=== PATIENT | female | born 1990 | race African-American/Black ===

== ENCOUNTER 2016-09-25 09:23 | Observation (INO) | payer MEDICAID ==
[2016-09-25 10:30] LABS: APPEARANCE,URINE SLIGHTLY-CLOUDY; BILIRUBIN,URINE NEGATIVE (NEGATIVE); GLUCOSE, URINE NEGATIVE (NEGATIVE); KETONES,URINE TRACE mg/dL (NEGATIVE); LEUKOCYTE ESTERASE,URINE TRACE (NEGATIVE); NITRITE,URINE NEGATIVE (NEGATIVE); PROTEIN,URINE 100 mg/dL (NEGATIVE); URINE SPECIFIC GRAVITY 1.029
[2016-09-25] MEDS ORDERED: KETOROLAC TROMETHAMINE INJ/PF 30 MG/1 ML SDV IV ONE (10:35)
[2016-09-25 12:21] LABS: ABSOLUTE BASOPHILS # (AUTO) 0.1 10^3/uL (0.0-0.2); ABSOLUTE LYMPHOCYTES (AUTO) 1.5 10^3/uL (0.5-4.7); ABSOLUTE MONOCYTES (AUTO) 1.1 10^3/uL (0.1-1.4); ABSOLUTE NEUT (AUTO) 10.4 10^3/uL (1.7-8.2); BASOPHILS % (AUTO) 0.4 % (0-2); EOSINOPHILS % (AUTO) 0.2 % (0-6); HEMATOCRIT 30.3 % (36.0-47.0); HEMOGLOBIN 9.8 g/dL (12.0-15.5); HGB HCT DIFFERENCE -0.9; LYMPHOCYTES % (AUTO) 11.6 % (13-45); MEAN CORPUSCULAR HEMOGLOBIN 22.7 pg (27.0-33.4); MEAN CORPUSCULAR HGB CONC 32.3 g/dL (32.0-36.0); MEAN CORPUSCULAR VOLUME 70 fl (80-97); MONOCYTES % (AUTO) 8.6 % (3-13); RED CELL DISTRIBUTION WIDTH 14.2 % (11.5-14.0); SEGMENTED NEUTROPHILS % (AUTO) 79.2 % (42-78); WHITE BLOOD COUNT 13.2 10^3/uL (4.0-10.5)
--- NOTE | 2016-09-25 12:32 | ER Document Report ---
ED GI/ - General Chief Complaint: Pelvic Pain Stated Complaint: ABDOMINAL PAIN Notes: Patient is here complaining of pain in her left lower quadrant for the past 2 days, since Friday. The pain hurts around into the mid suprapubic region and also backward into the flank regions. It's worsened by her standing up straight so she is bending over walking. She went to a local urgent care yesterday who did a pelvic examination and some labs. Told the patient she is not , but needed to be seen where they have ultrasound capabilities. So she is here today. Denies any nausea or vomiting or diarrhea. Denies any UTI symptoms and has never had a UTI. Denies cough or cold or chest congestion. Think she may have had some fever yesterday. LMP 09/21, on no control. TRAVEL OUTSIDE OF THE [place] IN LAST 30 DAYS: No - Related Data Allergies/Adverse Reactions: No Known Allergies Allergy (Verified 09/25/16 09:30) Home Medications: Current Home Medications No Home Medications 09/25/16 [History] Past Medical History - Social History Smoking Status: Never Smoker Cigarette use (# per day): No Chew tobacco use (# tins/day): No Frequency of alcohol use: Occasional Drug Abuse: None Family History: None, Reviewed & Not Pertinent Patient has suicidal ideation: No Patient has homicidal ideation: No Renal/ Medical History: Reports: Hx Ovarian Cysts - Thinks she may have been told that she had ovarian cysts about 10 years ago Malignancy Medical History: Denies: Hx Cervical Cancer Past Surgical History: Reports: Hx Herniorrhaphy Review of Systems - Review of Systems Notes: REVIEW OF SYSTEMS: CONSTITUTIONAL : Denies fever. EENT: Denies eye, ear, nose or mouth or throat pain or other symptoms. CARDIOVASCULAR: Denies chest pain. RESPIRATORY: Denies cough, chest congestion, or shortness of breath. GASTROINTESTINAL: Denies nausea, vomiting, or diarrhea. See history of present illness. GENITOURINARY: Denies difficulty or painful urinating, urinary frequency, blood in urine. LMP 09/21, regular, no control. MUSCULOSKELETAL: Denies back or neck pain. Denies joint pain or swelling. SKIN: Denies rash or skin lesions. NEUROLOGICAL: Denies LOC or altered mental status. Denies headache. Denies sensory loss or motor deficits. ALL OTHER SYSTEMS REVIEWED AND NEGATIVE. Physical Exam - Vital signs Vitals: Temp Pulse Resp BP Pulse Ox 98.5 F 94 16 97/58 L 100 09/25/16 09:28 09/25/16 09:28 09/25/16 09:28 09/25/16 09:28 09/25/16 09:28 Interpretation: Normal - Blood pressure slightly low. - Notes Notes: PHYSICAL EXAMINATION: GENERAL: Well-appearing, in no acute distress. Walks slightly slumped forward as if in pain to stand up straight. HEAD: Atraumatic, normocephalic. NECK: Normal range of motion, supple. LUNGS: Breath sounds clear and equal bilaterally. HEART: Regular rate and rhythm without murmurs. ABDOMEN: Patient's left lower quadrant is extremely tender to touch with guarding present. Fullness in that region felt, but no actual mass noted. Bowel sounds are present. BACK: No tenderness throughout entire back. No CVA percussion tenderness of either side. EXTREMITIES: Normal range of motion without pain. NEUROLOGICAL: Normal speech, normal gait. Normal sensory, motor, and reflex exams. Awake, alert, and oriented x3. Cranial nerves normal. SKIN: Warm, dry, no rashes. - Genitourinary External exam: Normal Speculum exam: Normal, Cervix closed. No: Vaginal discharge, Lesions Vaginal bleeding: None Bimanuel exam: Uterus enlarged, Other - Pelvic exam reveals diffuse severe tenderness with very large uterus or mass of the midline of the suprapubic region. Course - Re-evaluation Re-evalutation: 09/25/16 16:[address] Deutsch, reproduction order processor NET SOFTWARE DEVELOPER and ask his assistance in evaluating the patient. 09/25/16 19:18 Dr. Deutsch evaluated the patient and felt she should be transferred to a tertiary center for further evaluation and care. A call was placed to the transfer center at [facility] in [place] and a Dr. Gu accepted the patient in transfer, but there are no beds available at this time. It is not known at this time if the patient will be able to get a bed at [facility] this evening or tonight. Dr. Deutsch agreed to put the patient in for observation until a bed becomes available in [place]. - Vital Signs Vital signs: Temp Pulse Resp BP Pulse Ox 98.2 F 78 16 100/61 99 09/25/16 17:22 09/25/16 17:22 09/25/16 17:22 09/25/16 17:22 09/25/16 17:22 - Laboratory Result Diagrams: 09/25/16 10:46 09/25/16 10:46 Laboratory results interpreted by me: 09/25/16 09/25/16 09/25/16 10:10 10:46 10:46 WBC 13.2 H Hgb 9.8 L Hct 30.3 L MCV 70 L MCH 22.7 L RDW 14.2 H Seg Neutrophils % 79.2 H Lymphocytes % 11.6 L Absolute Neutrophils 10.4 H Albumin 3.4 L Lipase 22.3 L Urine Protein 100 H Urine Ketones TRACE H Urine Blood SMALL H Urine Urobilinogen 4.0 H Ur Leukocyte Esterase TRACE H - Diagnostic Test Radiology reviewed: Image reviewed, Reports reviewed - Ultrasound shows a very large mass of uncertain origin in the pelvis, recommend CT scan. CT scan of the abdomen shows a very large mass in the pelvis which could be either cystic in nature or solid and uncertain origin of the mass. Discharge - Discharge Clinical Impression: Pelvic mass Condition: Stable Disposition: ADMITTED OBSERVATION Admitting Provider: [facility] Admitted: Post
[2016-09-25 12:37] LABS: CHLAM PCR NOT DETECTED (NOT DETECT)
[2016-09-25 12:47] LABS: ALANINE AMINOTRANSFERASE 22 U/L (9-52); ALBUMIN 3.4 g/dL (3.5-5.0); ALKALINE PHOSPHATASE 51 U/L (38-126); ANION GAP 9 (5-19); ASPARTATE AMINO TRANSFERASE 22 U/L (14-36); BILIRUBIN,TOTAL 1.3 mg/dL (0.2-1.3); BLOOD UREA NITROGEN 10 mg/dL (7-20); CARBON DIOXIDE 25 mmol/L (22-30); CHLORIDE 106 mmol/L (98-107); CREATININE RESULT 0.74 mg/dL (0.52-1.25); GLUCOSE 88 mg/dL (75-110); LIPASE 22.3 U/L (23-300); POTASSIUM 4.3 mmol/L (3.6-5.0); SODIUM 139.5 mmol/L (137-145); TOTAL PROTEIN 6.3 g/dL (6.3-8.2)
[2016-09-25] MEDS ORDERED: ONDANSETRON HCL INJ/PF 4 MG/2 ML SDV IV ONE (13:43)
[2016-09-25] MEDS ORDERED: HYDROMORPHONE HCL INJ/PF 2 MG/ML AMPULE IV ONE ×2 (13:44→18:50)
--- NOTE | 2016-09-25 18:01 | PDOC CONSULTATION ---
Consultation Consult Date: 09/25/16 Attending physician:: JOVANY PUENTE Consult reason:: Pelvic mass History of Present Illness Admission Date/PCP: RED RESENDIZ MD History of Present Illness: TIFFANI RESENDIZ is a 26 year old female. She presents with pain left lower quadrant since last 2 days. She was seen a local urgent care yesterday and a pelvic exam and labs were done. She was told that she was not . She presents to the ER today with the same symptoms. She underwent a CT scan showing a large pelvic mass which is anterior to the uterus with its mostly solid component. She was also some fluid in the pelvic gutters. Past Medical History LMP: 09/22/16 Malignancy Medical History: Denies: Cervical Cancer Social History Smoking Status: Never Smoker Family History Family History: None, Reviewed & Not Pertinent Parental Family History Reviewed: Yes Children Family History Reviewed: Yes Sibling(s) Family History Reviewed.: Yes Medication/Allergy Home Medications: Ibuprofen [Motrin 600 Mg Tablet] 600 mg PO TID #30 tablet 03/05/14 Allergies/Adverse Reactions: No Known Allergies Allergy (Verified 09/25/16 09:30) Physical Exam - Physical Exam Vital Signs: Temp Pulse Resp BP Pulse Ox 98.2 F 78 16 100/61 99 09/25/16 17:22 09/25/16 17:22 09/25/16 17:22 09/25/16 17:22 09/25/16 17:22 Intake & Output 09/24/16 09/25/16 09/26/16 06:59 06:59 06:59 Weight 64.9 kg Result Laboratory Results: 09/25/16 10:46 09/25/16 10:46 09/25/16 09/25/16 09/25/16 10:10 10:46 10:46 WBC 13.2 H RBC 4.30 Hgb 9.8 L Hct 30.3 L MCV 70 L MCH 22.7 L MCHC 32.3 RDW 14.2 H Plt Count 324 Seg Neutrophils % 79.2 H Lymphocytes % 11.6 L Monocytes % 8.6 Eosinophils % 0.2 Basophils % 0.4 Absolute Neutrophils 10.4 H Absolute Lymphocytes 1.5 Absolute Monocytes 1.1 Absolute Eosinophils 0.0 Absolute Basophils 0.1 Sodium 139.5 Potassium 4.3 Chloride 106 Carbon Dioxide 25 Anion Gap 9 BUN 10 Creatinine 0.74 Est GFR ( Amer) > 60 Est GFR (Non-Af Amer) > 60 Glucose 88 Calcium 9.0 Total Bilirubin 1.3 AST 22 ALT 22 Alkaline Phosphatase 51 Total Protein 6.3 Albumin 3.4 L Lipase 22.3 L Urine Color ASHVIN Urine Appearance SLIGHTLY-CLOUDY Urine pH 6.0 Ur Specific [place] 1.029 Urine Protein 100 H Urine Glucose (UA) NEGATIVE Urine Ketones TRACE H Urine Blood SMALL H Urine Nitrite NEGATIVE Ur Leukocyte Esterase TRACE H Urine WBC (Auto) 5 Urine RBC (Auto) 26 Impressions: Abdomen/Pelvis CT 09/25/16 00:00 IMPRESSION: There is a large masslike lesion seen in the anterior abdomen anterior to the uterus in on top of the bladder which appears to be either a complex cystic lesion or solid lesion of unknown origin foot likely appears to arise from the adnexa. Masses that demonstrate significant enhancement on these images. This appears to be some intra-abdominal free fluid in Sosa's pouch and in the pericolic gutters likely related to this mass lesion. Pelvis Ultrasound 09/25/16 11:05 IMPRESSION: Huge complex left adnexal mass worrisome for tumor. Left ovary not definitely visualized. Results discussed with the emergency room attending physician Assessment & Plan - Plan Summary Plan Summary: I've seen the patient examined with Dr. Puente. She has a large pelvic mass on both exam CAT scan and ultrasound. Because of this potential for malignancy she will need a laparotomy with staging in case the mass is malignant. We are working on transferring her to a tertiary care center for this procedure. We do not have by [employer] oncology's subspecialty at our institution. Patient does appear stable. We are waiting on a bed to open up at [facility].
[2016-09-25] MEDS ORDERED: OXYCODONE-ACETAMINOPHEN 5-325 MG TABLET PO PRN (19:17)
[2016-09-25] MEDS ORDERED: RINGERS SOLUTION,LACTATED 1,000 ML IV PRN (19:17)
[2016-09-25] MEDS ORDERED: ZOLPIDEM TARTRATE 5 MG TABLET PO PRN (19:18)
[2016-09-25] MEDS: OXYCODONE-ACETAMINOPHEN 5-325 MG TABLET PO PRN (21:48)
[2016-09-26] MEDS: OXYCODONE-ACETAMINOPHEN 5-325 MG TABLET PO PRN ×2 (03:44→10:55)
[2016-09-26 11:40] VITALS: BP 98/57
== END 2016-09-26 16:15 | disposition short-term general hospital (02) ==
LOC: ER 09:23 → UNDOADMOB 19:00 → 2N 19:00 → EH 19:53 → UNDOADMOB 19:53 → EH 20:45 → 2N 20:45
PROVIDERS: ADMIT Obstetrics & Gynecology; ATTEND Obstetrics & Gynecology
PROC: 3E033GC Introduction of Other Therapeutic Substance into Peripheral Vein, Percutaneous Approach (ICD-10-PCS; principal; 2016-09-25)
PROC: 3E033GC Introduction of Other Therapeutic Substance into Peripheral Vein, Percutaneous Approach (ICD-10-PCS; 2016-09-25)
PROC: 3E033GC Introduction of Other Therapeutic Substance into Peripheral Vein, Percutaneous Approach (ICD-10-PCS; 2016-09-25)
DX: R19.04 Left lower quadrant abdominal swelling, mass and lump (principal); Z85.41 Personal history of malignant neoplasm of cervix uteri
CPT/HCPCS: 96376; 99285; 96374; 96375; 36415; 87210; 83690; 85025; 81025; 80053; 81001; 87491; 87591; 76856; 93976; 74177; J1885; J1170; J2405; J7120